=== PATIENT | female | born 1960 | race Caucasian/White ===

== ENCOUNTER 2025-07-21 16:46 | Emergency (ER) | payer OTHER ==
[~2025-07-21] VITALS: Ht 160 cm; Wt 79.5 kg
[2025-07-21 17:28] VITALS: TEMP 98.6
[2025-07-21 18:09] LABS: PLATELET COUNT (AUTO) 331 K/uL (150-450); RED BLOOD CELL COUNT(AUTO) 4.10 MIL/uL (4.00-5.20); RED CELL DISTRIBUTION WIDTH 14.6 % (11.5-14.5); WHITE BLOOD COUNT (AUTO) 8.8 K/uL (4.5-11.0)
[2025-07-21 18:15] LABS: CALCIUM, TOTAL 9.0 mg/dL (8.8-10.5); CREATININE 1.4 mg/dL (0.60-1.30); GLOMERULAR FILTR. RATE CALC 38.0 mL/min (>60); GLUCOSE,RANDOM 100.0 mg/dL (70-110); SODIUM SERUM 136.0 mmol/L (136-145); UREA NITROGEN, BLOOD 32.0 mg/dL (7-18)
[2025-07-21 18:18] LABS: COVID AG,FIA SOURCE NASAL SWAB
[2025-07-21 18:22] LABS: ALCOHOL, BLOOD (SERUM) < 3 mg/dL (0-10); ASPARTATE AMINOTRANSFERASE 25 U/L (15-37); TOTAL PROTEIN, SERUM 7.0 g/dL (6.4-8.2)
[2025-07-21 18:24] LABS: LACTIC ACID 1.1 mmol/L (0.4-2.0)
[2025-07-21 18:35] LABS: SARS-COV2 (COVID) ANTIGEN,FIA Negative (Negative)
[2025-07-21] MEDS: CEFEPIME HCL 2 GM in DEXTROSE 5%-WATER 50 ML IV ONE (18:40)
[2025-07-21] MEDS: VANCOMYCIN 1.25 GM/WATER(PEG) 250 ML IV ONE (18:40)
[2025-07-21 21:52] VITALS: BP 113/66; PULSE 87; RESP 18; O2SAT 96
== END 2025-07-21 22:20 | disposition short-term general hospital (02) ==
LOC: EMS 16:46
DX: L03.116 Cellulitis of left lower limb (principal); S91.301A Unspecified open wound, right foot, initial encounter; S91.302A Unspecified open wound, left foot, initial encounter; I10 Essential (primary) hypertension; E11.9 Type 2 diabetes mellitus without complications; Z98.890 Other specified postprocedural states; Z20.822 Contact with and (suspected) exposure to COVID-19
CPT/HCPCS: 99285; 96365; 96366; 87426; 80048; 80076; 82962; 83605; 85025; 87040; 36415; 73630 ×2; 96368; G0480; J0692; J7060; J3490